=== PATIENT | female | born 1975 | race Caucasian/White ===

== ENCOUNTER 2023-04-25 06:41 | Day surgery (SDC) | payer OTHER ==
[~2023-04-25 06:41] MED LIST: Midazolam 1 MG/ML 2 ML SDV ONE; Propofol 200 MG/20 ML SDV ONE; fentaNYL 50 MCG/ML SDV ONE
[2023-04-25] MEDS ORDERED: Lactated Ringers 1,000 ML IV SCH ×2 (07:30)
== END 2023-04-25 09:40 | disposition home or self-care (01) ==
LOC: JP.SDS 06:41
PROVIDERS: ATTEND Family Medicine
DX: Z12.11 Encounter for screening for malignant neoplasm of colon (principal); Z88.5 Allergy status to narcotic agent; E03.9 Hypothyroidism, unspecified; F32.A Depression, unspecified
CPT/HCPCS: 45378; J2250; J2704; J3010; J7120